=== PATIENT | female | born 1995 | race Caucasian/White ===

== ENCOUNTER 2020-02-21 17:34 | Inpatient (IN) | payer MEDICAID ==
[~2020-02-21] VITALS: Ht 165.1 cm; Wt 70.3 kg
--- NOTE | 2020-02-21 17:35 | NUR ---
PT [id number] FRM HOME FOR WITNESSED SEIZURE. VERSED 5MG IV GIVEN HEADING PINNER, PT IS AAOX3, NOT IN RESPIRATORY DISTRESS, HOOKED TO MONITOR, KEPT RESTED AND COMFORTABLE, WILL CONTINUE TO MONITOR.
--- NOTE | 2020-02-21 17:40 | NUR ---
SEEN AND EXAMINED BY .
[2020-02-21] MEDS ORDERED: LORAZEPAM INJ 2 MG/ML VIAL ONE ×2 (17:53→19:43)
[2020-02-21] MEDS ORDERED: IV NS 0.9% 1,000 ML BAG IV ONE (18:00)
[2020-02-21] MEDS ORDERED: phenytoin SODIUM IV 1,000 MG in IV NS 0.9% 100 ML IV ONE (18:00)
--- NOTE | 2020-02-21 18:00 | NUR ---
BLOOD DRAWN AND SENT TO LAB.
[2020-02-21 18:03] LABS: BASOPHILS % (AUTO) 0.5 % (0.0-2.0); EOSINOPHILS % (AUTO) 6.4 % (0.0-6.0); HEMATOCRIT 38 % (33-45); HEMOGLOBIN 12.3 g/dL (11.5-14.8); LYMPHOCYTES # (AUTO) 1.4 /CMM (0.8-4.8); LYMPHOCYTES % (AUTO) 25.8 % (20.0-44.0); MEAN CORPUSCULAR HGB CONC 33 g/dl (31.0-36.0); MEAN CORPUSCULAR VOLUME 85 fL (82-100); MONOCYTES # (AUTO) 0.5 /CMM (0.1-1.30); MONOCYTES % (AUTO) 8.9 % (2.0-12.0); NEUTROPHILS # (AUTO) 3.2 /CMM (1.8-8.9); NEUTROPHILS % (AUTO) 58.4 % (43.0-81.0); PLATELET COUNT (AUTO) 190 /CMM (150-450); RED BLOOD CELL COUNT(AUTO) 4.45 MIL/uL (4.0-5.2); WHITE BLOOD COUNT (AUTO) 5.4 K/uL (4.3-11.0)
--- NOTE | 2020-02-21 18:12 | NUR ---
URINE SPECIMEN COLLECTED AND SENT TO LAB.
[2020-02-21 18:13] LABS: CALCIUM, SERUM 9.1 mg/dL (8.5-10.1); CARBON DIOXIDE 28 mmol/L (21-32); CHLORIDE 103 mmol/L (98-107); CREATININE 0.5 mg/dL (0.6-1.3); GLUCOSE 88 mg/dL (74-106); POTASSIUM 4.1 mmol/L (3.5-5.1); SODIUM SERUM 140 mmol/L (136-145); UREA NITROGEN, BLOOD 16 mg/dL (7-18)
[2020-02-21 18:16] LABS: ALCOHOL, BLOOD < 3 mg/dL (0-0)
[2020-02-21 18:21] LABS: APPEARANCE,URINE Clear (CLEAR); BILIRUBIN,URINE Negative (NEGATIVE); BLOOD, URINE Negative Ery/uL (NEGATIVE); COLOR,URINE Yellow (YELLOW); KETONES,URINE Negative (NEGATIVE); LEUKOCYTE ESTERASE ,URINE Trace (NEGATIVE); NITRITE, URINE Negative (NEGATIVE); PROTEIN,URINE Negative (NEGATIVE); UGLUCOSE Negative (NEGATIVE); UROBILINOGEN,URINE 0.2 EU/dL (0.2)
[2020-02-21 18:22] LABS: BACTERIA,URINE None seen /HPF (None Seen); RBC,URINE 0-2 /HPF (0-2); SQUAMOUS EPITHELIAL CELL,UR Few /HPF (None Seen); WBC,URINE 0-2 /HPF (0-3)
[2020-02-21] MEDS ORDERED: LORAZEPAM INJ 2 MG/ML VIAL IV ONE ×2 (18:30→20:00)
--- NOTE | 2020-02-21 18:34 | NUR ---
PT IS WHEELED TO CT SCAN VIA [facility].
--- NOTE | 2020-02-21 19:17 | NUR ---
REPORT GIVEN TO GLADYS SLAUGHTER FOR CHANDLER.
[2020-02-21] MEDS ORDERED: LEVETIRACETAM (500MG) 1,000 MG in IV NS 0.9% 100 ML IV SCH (19:30)
--- NOTE | 2020-02-21 19:42 | NUR ---
WITNESSED TONIC SEIZURE LASTEDF FROM 07:42- 07:47. 2MG ATIVAN GIVEN PER MD VERBAL ORDER.
--- NOTE | 2020-02-21 20:02 | NUR ---
CALLED NURSING SUP FOR TELE BED
--- NOTE | 2020-02-21 20:14 | NUR ---
BED ASSIGNMENT 312-2 TELE
[2020-02-21] MEDS ORDERED: TEMAZEPAM 15 MG CAPSULE PO PRN (20:30)
[2020-02-21] MEDS ORDERED: MORPHINE SULFATE INJ 2 MG/ML DISP.SYRIN IV PRN (20:30)
[2020-02-21] MEDS ORDERED: ONDANSETRON HCL/PF 4 MG/2 ML VIAL IVP PRN (20:30)
[2020-02-21] MEDS ORDERED: MAG HYDROX/AL HYDROX/SIMETH 30 ML UDC PO PRN (20:30)
[2020-02-21] MEDS ORDERED: MAGNESIUM HYDROXIDE 30 ML UDC PO PRN (20:30)
[2020-02-21] MEDS ORDERED: ACETAMINOPHEN 325 MG TABLET PO PRN (20:30)
--- NOTE | 2020-02-21 20:55 | NUR ---
REPORT GIVEN TO GLADYS KEY FOR CHANDLER
[2020-02-21 21:30] VITALS: BP 132/74
[2020-02-21 21:37] VITALS: BP 132/71
--- NOTE | 2020-02-21 21:48 | NUR ---
PT TRANSFETRED PER ACLS PROTOCOL
--- NOTE | 2020-02-21 21:50 | NUR ---
MATTRESS AND FOUNDATION SEWER NOTES PATIENT ARRIVED ON UNIT AT 2150. PATIENT IS ALERT AND ORIENTED X 3. BREATHING EVEN AND UNLABORED ON 2L NC. SHOWS NO SIGNS OF ACUTE RESPIRATORY DISTRESS, NO ACUTE PAIN. IV ON L HAND 20G RUNNING NS AT 75ML/HR. SHOWS NO SIGNS OF INFILTRATION, NO REDNESS. BELONGINGS CHECKLIST COMPLETED, AND SKIN ASSESSMENT COMPLETE. SEIZURE PRECAUTIONS IN PLACE. BED IN LOWEST POSITION, LOCKED, AND CALL LIGHT KEPT WITHIN REACH. WILL CONTINUE TO MONITOR.
--- NOTE | 2020-02-21 22:45 | NUR ---
MANAGER COLLECTION NOTES RAPID RESPONSE CALLED ON 2244. PT HAD SEIZURE EPISODE LASTING MORE THAN 10MINUTES. PRN ATIVAN WAS GIVEN. PT HAS PADDED SIDE RAILS AND BED KEPT IN FLAT POSITION. PT HAD STABLE VITALS POST SEIZURE WITH PULSE AND RESPIRATIONS, NO EPISODE OF INCONTINENCE, NO INJURIES OCCURRED. WILL CONTINUE TO MONITOR.
[2020-02-21] MEDS: LORAZEPAM INJ 2 MG/ML VIAL IV PRN (22:48)
--- NOTE | 2020-02-21 23:00 | NUR ---
JANITOR SUPERVISOR NOTES PATIENT COULD NOT CONTINUE WITH ADMISSION INTERVIEW PROCESS. PT STATED SHE IS TOO EXHAUSTED TO ANSWER QUESTIONS. WILL CONTINUE TO MONITOR.
[2020-02-22] VITALS (7 sets, daily range): BP systolic 90–140; BP diastolic 55–77
[2020-02-22] MEDS: IV NS 0.9% 1,000 ML IV PRN ×2 (00:39→13:57)
[2020-02-22] MEDS: HYDROCODONE/APAP 5/325MG 1 EACH TABLET PO PRN ×2 (03:05→10:17)
--- NOTE | 2020-02-22 03:30 | NUR ---
ORTHOPEDIC DENTIST NOTES PATIENT GIVEN PRN NORCO AT 0305, PAIN 7/10. BLOOD PRESSURE 112/67 AND HR 91. WILL CONTINUE TO MONITOR.
--- NOTE | 2020-02-22 06:48 | NUR ---
SOLAR ENERGY SALES SPECIALIST NOTES PATIENT IS IN BED, WITH INTERMITTENT SLEEP,ALERT AND ORIENTED X 3. BREATHING EVEN AND UNLABORED ON 2L NC. SHOWS NO SIGNS OF ACUTE RESPIRATORY DISTRESS, NO ACUTE PAIN. IV ON L HAND 20G RUNNING NS AT 75ML/HR. SHOWS NO SIGNS OF INFILTRATION, NO REDNESS. ALL DUE MEDICATION GIVEN. SAFETY AND SEIZURE PRECAUTIONS IN PLACE. BED IN LOWEST POSITION, LOCKED, AND CALL LIGHT KEPT WITHIN REACH. WILL ENDORSE TO ONCOMING NURSE.
[2020-02-22 07:01] LABS: BASOPHILS % (AUTO) 0.4 % (0.0-2.0); EOSINOPHILS % (AUTO) 5.9 % (0.0-6.0); HEMATOCRIT 35 % (33-45); HEMOGLOBIN 11.3 g/dL (11.5-14.8); LYMPHOCYTES # (AUTO) 1.8 /CMM (0.8-4.8); LYMPHOCYTES % (AUTO) 32.4 % (20.0-44.0); MEAN CORPUSCULAR HGB CONC 33 g/dl (31.0-36.0); MEAN CORPUSCULAR VOLUME 86 fL (82-100); MONOCYTES # (AUTO) 0.4 /CMM (0.1-1.30); MONOCYTES % (AUTO) 8.1 % (2.0-12.0); NEUTROPHILS # (AUTO) 2.9 /CMM (1.8-8.9); NEUTROPHILS % (AUTO) 53.2 % (43.0-81.0); PLATELET COUNT (AUTO) 171 /CMM (150-450); RED BLOOD CELL COUNT(AUTO) 4.04 MIL/uL (4.0-5.2); WHITE BLOOD COUNT (AUTO) 5.5 K/uL (4.3-11.0)
[2020-02-22 07:11] LABS: CALCIUM, SERUM 8.3 mg/dL (8.5-10.1); CREATININE 0.6 mg/dL (0.6-1.3); MAGNESIUM 1.9 mg/dL (1.8-2.4); PHOSPHORUS 3.3 mg/dL (2.5-4.9); POTASSIUM 3.5 mmol/L (3.5-5.1)
--- NOTE | 2020-02-22 07:30 | NUR ---
RN OPENING NOTE Patient is sleeping in bed, showing no signs of acute distress or SOB, saturating >95% on 2L NC. Iv line in the right wrist is clean and patent running NS @ 100ml/hour. Bed is in lowest position, side rails x3 in upright position, fall, safety aspiration and seizure precautions enforced. Will continue with plan of care.
[2020-02-22] MEDS: LEVETIRACETAM (500MG) 1,000 MG in IV NS 0.9% 100 ML IV SCH ×2 (09:31→20:23)
--- NOTE | 2020-02-22 14:30 | NUR ---
RN NOTE Patient requested to update Dr. Richard Lal at [facility]. I was able to speak with him and he recommends psych consult for the patient. Informed Nichole White N.P., ok to order psych consult.
[2020-02-22] MEDS: LORAZEPAM INJ 2 MG/ML VIAL IV PRN ×2 (14:47→20:36)
--- NOTE | 2020-02-22 14:53 | NUR ---
Social service consult requested by ASIA Vang. Per notes and chart review, pt is a 24-year-old female patient presented to the emergency department via EMS; her boyfriend called 911 because of recurrent possibly seizure-like activity since Wednesday. The patient states that she was seen, evaluated and admitted at [facility] last January 2024 seizure activity-where she was placed on intravenous Keppra and discharged with no antiepileptics. The patient states that she was referred to an outpatient neurologist. The patient saw a neurologist in [place] where she says that an EEG was performed. The patient then was placed on p.o. Keppra and Lamictal. According to her, the neurologist does not think that she has epilepsy; however, she was placed on 2 antiepileptics. The patient states that she supposed to have another test done by her neurology where she will be monitored for 3 days. The patient states that last Wednesday, she had a fall, most likely secondary to another possible seizure-like activity-however she did not seek medical treatment. Today, her boyfriend called 911, after he witnessed her having some generalized muscle contractures, tremors, and she states that her boyfriend was concerned because after the event-she was very confused. WARM IN along with pt's bedside RN attempted to meet with the pt. bedside, however pt. was having a seizure. WARM IN to f/u when pt is alert and oriented to participate in the assessment. WARM IN was informed by ASIA Vang that pt. appears to be faking her seizures and is drug seeking. Pt is awaiting a neuro and psychiatric consult. ironworker will be available for services as needed.
--- NOTE | 2020-02-22 14:59 | NUR ---
RN NOTE Patient had seizure episode, shaking for Addendum: 02/22/20 at 1505 by PORSCHE CAMPBELL RN shaking for 10 minutes, tele monitor sinus rhythm 120s-130s (highest 134), BP 98/60, O2 100% on RA, T 98.8. Ativan PRN given at 1447. Once ativan was given, patient stopped shaking right away. After 1 minute, patient opened eyes and I asked "Do you remember anything that happened?" She stated, "I remember shaking a lot." BP now is 91/53. HR 86, T 98.8 O2 100% on RA, RR 18. Will continue to monitor. Addendum: 02/22/20 at 1510 by PORSCHE CAMPBELL RN patient remains free of injury, lying flat on her left side, side rails padded. Will continue to monitor.
--- NOTE | 2020-02-22 18:05 | NUR ---
RN NOTE Patient had episode of shaking for 5 minutes. Tele monitor SR 110s-130s (highest 137). Vital signs stable. Ativan not given due to medication not due yet. Flushed IV line with saline, patient stopped shaking after 1 minute. Patient remains stable, SR 80s. Addendum: 02/22/20 at 1821 by PORSCHE CAMPBELL RN made aware.
--- NOTE | 2020-02-22 18:10 | NUR ---
RN CLOSING NOTE Patient is sleeping in bed, showing no signs of acute distress or SOB, saturating >95% on 2L NC. IV line in the right wrist is clean and patent running NS @ 100ml/hour. All patient needs met, all due medications given. Patient is independent with care and uses bedside commode. Bed is in lowest position, side rails x3 in upright position, fall, safety aspiration and seizure precautions enforced. Will endorse to shift production associate.
--- NOTE | 2020-02-22 19:30 | NUR ---
PLATE HANGER OPENING NOTE RECEIVED PATIENT IN BED. A/OX4. ON OXYGEN 2L/MIN VIA NASAL CANNULA. RESPIRATIONS ARE EVEN AND UNLABORED. NO S/S SOB NOTED. EXTERNAL TELE MONITOR READS SR HR 84. IN NO APPARENT DISTRESS. IV ACCESS IN LEFT WRIST #20 RUNNING NS@75ML/HR. BED IS LOW AND LOCKED, HOB ELEVATED IN SEMIFOWLERS, SIDE RIALS UP, CALL LIGHT WITHIN REACH. WILL CONTINUE TO MONITOR.
--- NOTE | 2020-02-22 20:36 | NUR ---
SPORTS SPECIALIST NOTE ADMINISTERED PRN ATIVAN D/T PATIENT HAVING A SEIZURE. WILL CONTINUE TO MONITOR.
--- NOTE | 2020-02-22 20:55 | NUR ---
MS RN NOTE DATA VISUALIZATION DEVELOPER EVANGELISTA HENAO AT BEDSIDE . ASSESSING PATIENT. VERBAL ORDER FOR ATIVAN 1MG ONE TIME NOW STAT. ORDER READ BACK, NOTED AND CARRIED OUT.
[2020-02-22] MEDS ORDERED: LORAZEPAM INJ 2 MG/ML VIAL IV STA (20:57)
[2020-02-22] MEDS ORDERED: LORAZEPAM INJ 2 MG/ML VIAL IV PRN (21:00)
--- NOTE | 2020-02-22 21:35 | NUR ---
RAIL LOADER NOTE PATIENT HAD UNWITNESSED FALL. INCIDENT REPORT WILL BE COMPLETED. PATIENT HAD AN EPISODE FOR SEIZURE FROM 2032 TO 2124. PATIENT WAS ADMINISTERED ATIVAN 1MG AT 2035. CHARACTERISTICS OF SEIZURES INCLUDE TONIC CLONIC, SLOWING DOWN THEN REPEATING, DOWN TO A SOLO LEG SHAKE THEN HEAD BANGING, FACIAL EXPRESSIONS FOR INSTANCE SLOW MOVEMENT OF JAW, TEETH CHATTERING, AND TONGUE STICKING OUT. PATIENT DID NOT STOP SEIZING SO A CALL WAS MADE TO MOTION STUDY ENGINEER MD EVANGELISTA PARSONS AND RETURNED TO ROOM PATIENT WAS FOUND ON FLOOR STILL SEIZING. PATIENT HAD A UNWITNESSED FALL. PATIENT HAD A PILLOW PLACED UNDER HEAD. MD WAS ON THE UNIT AND ASSESSED PATIENT AND ORDERED ATIVAN 1MG WAS ORDERED AND ADMINISTERED WELL A HEAD CT WITHOUT CONTRAST ORDERED. PATIENT STOPPED SEIZING AT 2124. PATIENT POSTICTAL WAS A/OX4. WAS ABLE TO USE BEDSIDE COMMODE TO URINATE AND AMBULATE WITH STEADY GAIT AND WAS AWARE OF THINGS BEING SAID DURING THE SEIZURE. NO COMPLAINTS OF PAIN.
--- NOTE | 2020-02-22 21:48 | NUR ---
MS RN NOTE PATIENT IS GOING DOWN WITH RADIOLOGY FOR CT OF HEAD. AWAITING RETURN.
--- NOTE | 2020-02-22 21:55 | NUR ---
SOUND ASSISTANT NOTE PATIENT HAD A RAPID RESPONSE CALLED RADIOLOGY. TAMICA HENAO ORDERED ATIVAN 2MG IVP. PATIENT BROUGHT BACK TO ROOM. Addendum: 02/22/20 at 2215 by DEZ AUSTIN RN TAMICA HOWARD ADMINISTERED ATIVAN.
[2020-02-22] MEDS ORDERED: LORAZEPAM INJ 2 MG/ML VIAL ONE (22:00)
--- NOTE | 2020-02-22 23:01 | NUR ---
TELEPATHIST NOTE INFORMED DINING CHAIR SEAT CUSHION TRIMMER MD NAIDU THAT PATIENT STATES SHE TAKES 25MG LAMICTAL.
--- NOTE | 2020-02-22 23:04 | NUR ---
INTERNET MARKETING INTERN NOTE INFORMED METAL BONDING HELPER MD EVANGELISTA PARSONS THAT PATIENT STATES SHE TAKES 25MG LAMICTAL. MD TELEPHONE ORDERED LAMICTAL 50MG PO DAILY. TELEPHONE ORDER READ BACK, NOTED AND CARRIED OUT.
[2020-02-23] VITALS: BP 98/49
--- NOTE | 2020-02-23 01:54 | NUR ---
STARCH FACTORY LABORER NOTE INFORM INTERNATIONAL GUEST COORDINATOR MD EVANGELISTA PARSONS THAT PATIENT REPORTS TO BE TAKING ZOLOFT 100MG DAILY AND CURRENTLY BEING TAPPERED, BUT NOT REPORTED ON MED RECON. DAY SHIFT WAS TRYING TO GET AHOLD OF PATIENT PSYCHIATRIST FOR TAPPERING DOSAGE BUT AWAITING RETURN CALL. ASKED MD IF HE WOULD LIKE TO BEGIN ZOLOFT OR AWAIT INPATIENT PSYCH CONS. TELEPHONE ORDER ZOLOFT 100MG DAILY BEGING AM. TELEPHONE ORDER READ BACK, NOTED AND CARRIED OUT.
[2020-02-23 03:45] VITALS: BP 122/68
[2020-02-23] MEDS: HYDROCODONE/APAP 5/325MG 1 EACH TABLET PO PRN ×3 (04:14→16:00)
--- NOTE | 2020-02-23 04:14 | NUR ---
LINK WIRE FABRIC MACHINE TENDER NOTE ADMINISTERED PRN NORCO 5/325 FOR PAIN 10 , GENERALIZED. WILL CONTINUE TO MONITOR.
--- NOTE | 2020-02-23 06:42 | NUR ---
CEREAL POPPER CLOSING NOTE PATIENT IN BED. A/OX4. CURRENTLY ON ROOM AIR. RESPIRATIONS ARE EVEN AND UNLABORED. NO SOB NOTED. EXTERNAL TELE MONITOR READS SR HR 84. NO DISTRESS NOTED AT THIS TIME. IV ACCESS MAINTAINED IN LEFT WRIST #20 RUNNING NS@75ML/HR. BED REMAINS LOW AND LOCKED, HOB ELEVATED IN SEMIFOWLERS, SIDE RIALS UP, CALL LIGHT WITHIN REACH. WILL ENDORSE TO NEXT SHIFT.
[2020-02-23 06:58] LABS: BASOPHILS % (AUTO) 0.4 % (0.0-2.0); HEMATOCRIT 35 % (33-45); HEMOGLOBIN 11.4 g/dL (11.5-14.8); LYMPHOCYTES # (AUTO) 1.6 /CMM (0.8-4.8); LYMPHOCYTES % (AUTO) 25.4 % (20.0-44.0); MEAN CORPUSCULAR HGB CONC 33 g/dl (31.0-36.0); MEAN CORPUSCULAR VOLUME 86 fL (82-100); MONOCYTES # (AUTO) 0.4 /CMM (0.1-1.30); MONOCYTES % (AUTO) 6.7 % (2.0-12.0); NEUTROPHILS # (AUTO) 3.6 /CMM (1.8-8.9); NEUTROPHILS % (AUTO) 59.5 % (43.0-81.0); PLATELET COUNT (AUTO) 170 /CMM (150-450); RED BLOOD CELL COUNT(AUTO) 4.02 MIL/uL (4.0-5.2); WHITE BLOOD COUNT (AUTO) 6.1 K/uL (4.3-11.0)
[2020-02-23 07:44] LABS: CALCIUM, SERUM 8.5 mg/dL (8.5-10.1); CREATININE 0.6 mg/dL (0.6-1.3); MAGNESIUM 1.8 mg/dL (1.8-2.4); PHOSPHORUS 3.1 mg/dL (2.5-4.9); POTASSIUM 3.2 mmol/L (3.5-5.1)
[2020-02-23 08:00] VITALS: BP 95/51
--- NOTE | 2020-02-23 08:00 | NUR ---
TEST OPERATOR OPENING NOTES Received Patient asleep and resting in bed. A/O x 4. Patient in stable condition with no acute distress. Breathing even and unlabored on 2LPM via NC with no respiratory distress. No signs and symptoms of pain. Telemonitor in place and patent reading ST with HR-122. 20g PIV on left hand clean, intact, patent and flushing well with NS infusing at 100ml/hr. Safety precautions in place. Bed locked and set to lowest position with side rails x 2 up. All needs rendered at this time. Call light within reach. Will continue to monitor.
[2020-02-23] MEDS ORDERED: SERTRALINE HCL 50 MG TABLET PO SCH (09:00)
[2020-02-23] MEDS ORDERED: POTASSIUM CHLORIDE 20 MEQ TAB.PRT.SR PO ONE (09:00)
[2020-02-23] MEDS ORDERED: LamoTRIgine 25 MG TABLET PO SCH (09:00)
[2020-02-23] MEDS: LEVETIRACETAM (500MG) 1,000 MG in IV NS 0.9% 100 ML IV SCH (09:20)
[2020-02-23 12:00] VITALS: BP 108/58
[2020-02-23] MEDS: IV NS 0.9% 1,000 ML IV PRN (14:39)
[2020-02-23 16:00] VITALS: BP 92/60
--- NOTE | 2020-02-23 18:26 | NUR ---
SOLVENT STATION ATTENDANT CLOSING NOTES Patient resting in bed. A/O x 4. Patient in stable condition with no acute distress. Breathing even and unlabored on 2LPM via NC with no respiratory distress. No signs and symptoms of pain. Telemonitor in place and patent reading SR with HR-67. 20g PIV on left hand clean, intact, patent and flushing well with NS infusing at 100ml/hr. Safety precautions in place. Bed locked and set to lowest position with side rails x 2 up. All needs rendered at this time. Call light within reach. Will endorse plan of care to oncoming shift.
[2020-02-23 20:00] VITALS: BP 112/61
--- NOTE | 2020-02-23 22:43 | NUR ---
MS/TELE/RN AT INITIAL ROUND AT ABOUT 1929, PATIENT WAS AWAKE, ALERT, ORIENTED, COMFORTABLE, NO C/O PAIN, NO DISTRESS NOTED, NO S/S OF SEIZURE, PATIENT VERBALIZED THAT SHE WANT TO GO HOME. INFORMED PATIENT THAT THE DOCTOR HAS NO ORDER YET TO DISCHARGE HER AND THAT IF SHE WILL GO HOME AT THIS TIME, IT WOULD BE AGAINST MEDICAL ADVISE (AMA), PATIENT ACKNOWLEDGED IT. INFORMED FURHTER THE PATIENT OF THE RISKS AND CONSEQUENCES OF GOING AMA, PATIENT VERBALIZED UNDERSTANDING BUT STILL INSISTED TO GO AMA. CHARGE NURSE NILSA, MADE AWARE. EVANGELISTA PARSONS DNP, WAS NOTIFIED AT AROUND 2010. VITAL SIGNS T=98.7, PULSE=64 , RR= 18, ZM=400/61, O2 SAT=98% ON RA. PATIENT SIGNED THE AMA FORM, IV WAS REMOVED, BELONGINGS WERE ACCOUNTED, TELE BOX REMOVED, INSTRUCTED THE PATIENT TO GO TO NEAREST E.R. NECESSARY. INITIALLY, PATIENT STATED THAT HER BOYFRIEND WILL PICK HER UP, BUT LATER ON SAID THAT SHE WILL TAKE UBER. PATIENT LEFT THE FLOOR AT AROUND 2024 IN STABLE CONDITION.
== END 2020-02-23 20:25 | disposition left against medical advice (07) | DRG 101 ==
LOC: ER 17:37 → TELE 20:23 → MED 02-22 08:41
PROVIDERS: ADMIT Nurse Practitioner Acute Care; ATTEND Registered Nurse
DX: G40.89 Other seizures (principal); F12.90 Cannabis use, unspecified, uncomplicated; N80.9 Endometriosis, unspecified; F32.9 Major depressive disorder, single episode, unspecified; F41.9 Anxiety disorder, unspecified; Z88.1 Allergy status to other antibiotic agents; Z88.0 Allergy status to penicillin; J32.9 Chronic sinusitis, unspecified; Z80.9 Family history of malignant neoplasm, unspecified
CPT/HCPCS: 36415; 70450-TC; 71045-TC; 80048-TC; 80305; 81000-TC; 83735-TC; 84100-TC; 84703-TC; 85025-TC; 87081-TC; 95819-TC; A6403; G0378; G0480; J1165; J1953; J2060; J7030

== ENCOUNTER 2020-03-25 23:29 | Emergency (ER) | payer MEDICAID ==
[~2020-03-25] VITALS: Ht 165.1 cm; Wt 68.0 kg
--- NOTE | 2020-03-25 23:44 | NUR ---
BIBRA 78 FROM HOME FOR SEIZURE EPISODE LASTED 25 MIN,. VERSED 5 MG IM REC'D ELEVATOR REPAIRER APPRENTICE. REGULARLY ON KEPPRA. PT CURRENTLLY A,OX4. BREATHING EVENLY. NAD. C/O H/A. PLACED ON A MONITOR,
--- NOTE | 2020-03-25 23:51 | NUR ---
PT W/ AN EPISODE OF SEIZURE . REMAINED WITH THE PT TO ENSURE SAFETY. O2 APPLIED. SEIZURE PRECAUTION IN PLACE
[2020-03-25] MEDS ORDERED: LEVETIRACETAM (250 MG) 250 MG TABLET PO ONE (23:53)
[2020-03-25] MEDS ORDERED: LORAZEPAM INJ 2 MG/ML VIAL ONE (23:53)
[2020-03-25 23:57] LABS: BASOPHILS # (AUTO) 0.1 /CMM (0.0-0.2); BASOPHILS % (AUTO) 0.7 % (0.0-2.0); EOSINOPHILS % (AUTO) 3.5 % (0.0-6.0); HEMATOCRIT 38 % (33-45); HEMOGLOBIN 12.5 g/dL (11.5-14.8); LYMPHOCYTES # (AUTO) 1.4 /CMM (0.8-4.8); LYMPHOCYTES % (AUTO) 17.5 % (20.0-44.0); MEAN CORPUSCULAR HGB CONC 33 g/dl (31.0-36.0); MEAN CORPUSCULAR VOLUME 87 fL (82-100); MONOCYTES # (AUTO) 0.7 /CMM (0.1-1.30); MONOCYTES % (AUTO) 8.3 % (2.0-12.0); NEUTROPHILS # (AUTO) 5.7 /CMM (1.8-8.9); PLATELET COUNT (AUTO) 212 /CMM (150-450); RED BLOOD CELL COUNT(AUTO) 4.38 MIL/uL (4.0-5.2); WHITE BLOOD COUNT (AUTO) 8.2 K/uL (4.3-11.0)
[2020-03-26] MEDS ORDERED: LEVETIRACETAM (250 MG) 250 MG TABLET PO ONE
[2020-03-26] MEDS ORDERED: LORAZEPAM INJ 2 MG/ML VIAL IV ONE
[2020-03-26 00:04] LABS: CALCIUM, SERUM 9.3 mg/dL (8.5-10.1); CREATININE 0.7 mg/dL (0.6-1.3); POTASSIUM 4.1 mmol/L (3.5-5.1)
--- NOTE | 2020-03-26 00:04 | NUR ---
PT AWAKE AND ALERT. RESPONSIVE. SWALLOW EVAL DONE AT THE BED SIDE. PT ABLE TO SWALLOW HER KEPPRA MEDS W/ NO S/S OF ASPIRATION
--- NOTE | 2020-03-26 01:25 | NUR ---
PT HAD ANOTHER EPISODE OF SEIZURE? LAST ABOUT 6 MINUTES. MD MADE AWARE W/ NO NEW ORDER. REMAINED WITH THE PT FOR SAFETY.
[2020-03-26 01:53] LABS: APPEARANCE,URINE Clear (CLEAR); BILIRUBIN,URINE Negative (NEGATIVE); BLOOD, URINE Negative Ery/uL (NEGATIVE); COLOR,URINE Yellow (YELLOW); KETONES,URINE Negative (NEGATIVE); LEUKOCYTE ESTERASE ,URINE Negative (NEGATIVE); NITRITE, URINE Negative (NEGATIVE); PROTEIN,URINE Negative (NEGATIVE); UGLUCOSE Negative (NEGATIVE); UROBILINOGEN,URINE 0.2 EU/dL (0.2)
--- NOTE | 2020-03-26 02:13 | NUR ---
medically clear for D/C. IV removed. Catheter intact and site benign. Pressure and 4x4 applied to site. No bleeding noted. . Written and verbal after care instructions given. Patient verbalizes understanding of instruction. pt is sitting in bed alert and awake, arranging transportation. will f/u
--- NOTE | 2020-03-26 02:48 | NUR ---
PT WAS D/C'D HOME IN STABLE CONDITION,.
[2020-03-26 02:50] VITALS: BP 129/68
== END 2020-03-26 02:50 | disposition home or self-care (01) ==
LOC: ER 23:30
DX: R56.9 Unspecified convulsions (principal); F32.9 Major depressive disorder, single episode, unspecified; F41.9 Anxiety disorder, unspecified; Z88.0 Allergy status to penicillin; Z88.1 Allergy status to other antibiotic agents
CPT/HCPCS: 36415; 70450; 80048; 80305; 81001; 84703; 85025; 96374; 99284; J2060; 81000-TC

== ENCOUNTER 2020-04-14 21:44 | Emergency (ER) | payer BC, MEDICAID ==
[~2020-04-14] VITALS: Ht 165.1 cm; Wt 68.0 kg
--- NOTE | 2020-04-14 21:52 | NUR ---
[id number] FROM HOME FOR SEIZURE-LIKE ACTIVITY. ON SEIZURE MEDS ALERT ORIENTED SPEAKING FULL SENTENCES TO ER BED 10 VSS
[2020-04-14] MEDS ORDERED: LORAZEPAM INJ 2 MG/ML VIAL ONE (22:23)
[2020-04-14] MEDS ORDERED: LORAZEPAM INJ 2 MG/ML VIAL IV ONE (22:30)
[2020-04-14] MEDS ORDERED: ONDANSETRON HCL/PF 4 MG/2 ML VIAL IVP ONE (22:30)
[2020-04-14] MEDS ORDERED: IV NS 0.9% 1,000 ML BAG IV ONE (22:30)
[2020-04-14 22:33] LABS: BASOPHILS % (AUTO) 0.3 % (0.0-2.0); EOSINOPHILS % (AUTO) 2.6 % (0.0-6.0); HEMATOCRIT 40 % (33-45); HEMOGLOBIN 12.9 g/dL (11.5-14.8); LYMPHOCYTES # (AUTO) 1.7 /CMM (0.8-4.8); LYMPHOCYTES % (AUTO) 15.6 % (20.0-44.0); MEAN CORPUSCULAR HGB CONC 33 g/dl (31.0-36.0); MEAN CORPUSCULAR VOLUME 87 fL (82-100); MONOCYTES # (AUTO) 0.7 /CMM (0.1-1.30); MONOCYTES % (AUTO) 6.8 % (2.0-12.0); NEUTROPHILS # (AUTO) 7.9 /CMM (1.8-8.9); NEUTROPHILS % (AUTO) 74.7 % (43.0-81.0); PLATELET COUNT (AUTO) 270 /CMM (150-450); RED BLOOD CELL COUNT(AUTO) 4.52 MIL/uL (4.0-5.2); WHITE BLOOD COUNT (AUTO) 10.6 K/uL (4.3-11.0)
[2020-04-14] MEDS ORDERED: ONDANSETRON HCL/PF 4 MG/2 ML VIAL ONE (22:33)
--- NOTE | 2020-04-14 22:40 | NUR ---
MEDICATED PER ERMD ORDER, PT PIERCE WELL. PT RESTING, EYES CLOSED BUT EASILY AWAKEN BY VERBAL STIMULI. NO ACTIVE SEIZURE NOTED AT THIS TIME. PLACED ON LOOPER OPERATOR, NSR. ON SZ PRECAUTION. PT SEEN & EVAL'D BY DR. CHÁVEZ & WILL CONT TO MONITOR.
[2020-04-14 22:43] LABS: CALCIUM, SERUM 9.4 mg/dL (8.5-10.1); CREATININE 0.7 mg/dL (0.6-1.3); POTASSIUM 3.7 mmol/L (3.5-5.1)
[2020-04-14 22:54] LABS: ALBUMIN 4.5 g/dL (3.4-5.0); BILIRUBIN,DIRECT 0.2 mg/dL (0.0-0.2); BILIRUBIN,TOTAL 0.9 mg/dL (0.2-1.0); TOTAL PROTEIN, SERUM 8.1 g/dL (6.4-8.2)
[2020-04-15 01:12] LABS: APPEARANCE,URINE Slightly Cloudy (CLEAR); BILIRUBIN,URINE Negative (NEGATIVE); BLOOD, URINE Negative Ery/uL (NEGATIVE); COLOR,URINE Yellow (YELLOW); KETONES,URINE 40 (NEGATIVE); LEUKOCYTE ESTERASE ,URINE Trace (NEGATIVE); NITRITE, URINE Negative (NEGATIVE); PH,URINE 6.5 (5.0-8.0); PROTEIN,URINE Trace mg/dl (NEGATIVE); UGLUCOSE Negative (NEGATIVE); UROBILINOGEN,URINE 0.2 EU/dL (0.2)
[2020-04-15 01:17] LABS: BACTERIA,URINE None seen /HPF (None Seen); RBC,URINE 0-2 /HPF (0-2); WBC,URINE 0-2 /HPF (0-3)
[2020-04-15 01:18] LABS: SQUAMOUS EPITHELIAL CELL,UR Moderate /HPF (None Seen)
[2020-04-15] MEDS ORDERED: ONDANSETRON HCL/PF 4 MG/2 ML VIAL ONE (01:22)
[2020-04-15] MEDS ORDERED: ONDANSETRON HCL/PF - ER 4 MG/2 ML VIAL IV ONE (01:30)
[2020-04-15] MEDS ORDERED: KETOROLAC TROMETHAMINE 15 MG/ML VIAL ONE (01:34)
--- NOTE | 2020-04-15 01:46 | NUR ---
Note ginnyone in EDM - 04/15/20 at 0155 by CBATAPORTER PATIENT UPSET THAT WE DID NOT GET HIM A SODA FAST ENOUGH AND STARTED CURSING AT STAFF. WHEN TOLD THAT HE NEEDS TO RETURN TO HIS BED PATIENT STATED THAT HE WAS NEVER SUICIDAL AND WANTS TO LEAVE THE ER. ON HIS WAY OUT PATIENT CONTINUED TO CURSED AT STAFF AND THREATEN STAFF. DR SAIRA MOSES.
[2020-04-15 01:54] VITALS: BP 127/84
--- NOTE | 2020-04-15 01:55 | NUR ---
Patient discharged to home in stable condition. Written and verbal after care instructions given. Patient verbalizes understanding of instruction.pt. ambulatory with a steady gait
[2020-04-15] MEDS ORDERED: KETOROLAC TROMETHAMINE INJ 30 MG/ML VIAL IV ONE (02:00)
== END 2020-04-15 01:55 | disposition home or self-care (01) ==
LOC: ER 21:45
DX: R11.2 Nausea with vomiting, unspecified (principal); F44.5 Conversion disorder with seizures or convulsions; E86.0 Dehydration; Z88.0 Allergy status to penicillin; Z88.1 Allergy status to other antibiotic agents
CPT/HCPCS: 36415; 80048; 80076; 81001; 83690; 84703; 85025; 96361; 96374; 96375 ×2; 96376; 99284; J1885; J2060; J2405 ×2; J7030; 81000-TC